=== PATIENT | female | born 1965 | race American Indian/Alaskan Native ===

== ENCOUNTER 2018-02-05 15:24 | Outpatient (CLI) | payer OTHER ==
--- NOTE | 2018-02-06 08:05 | XRay Report ---
FINAL REPORT EXAM: XR SPINE LUMBOSACRAL 2-3V HISTORY: LUMBAGO WITH SCIATICA RIGHT SIDE/DISABILITY EXAMINATION TECHNIQUE: Three views lumbar spine were obtained. FINDINGS: There is severe narrowing of the L5-S1 disc. There is very mild narrowing of the L3-4 disc with endplate spurring. The alignment appears normal. There is no evidence of fracture. The SI joints appear normal. The soft tissues are unremarkable. IMPRESSION: Disc degeneration at the L5-S1 and L3-4 levels.
== END 2018-02-05 15:25 | disposition home or self-care (01) ==
LOC: XRAY 15:24
PROVIDERS: ATTEND Internal Medicine
DX: Z02.71 Encounter for disability determination (principal); M51.37 Other intervertebral disc degeneration, lumbosacral region
CPT/HCPCS: 72100

== ENCOUNTER 2018-03-12 08:51 | Outpatient (CLI) | payer OTHER ==
--- NOTE | 2018-03-12 10:01 | XRay Report ---
Right 3 views: History: Shoulder pain. Findings: Mild arthritic changes a.c. joint. Glenohumeral joint appears normal. Normal acromiohumeral space. No soft tissue calcification. Impression: Mild arthritic changes a.c. joint.
--- NOTE | 2018-03-12 10:02 | XRay Report ---
Left ankle 2 views: History: Left leg injury. Findings: No bony or articular abnormality at the ankle joint. No fracture dislocation or soft tissue calcification. Spur Impression: No evidence of acute fracture. posterior inferior inferior calcaneum.
== END 2018-03-12 08:52 | disposition home or self-care (01) ==
LOC: XRAY 08:51
PROVIDERS: ATTEND Internal Medicine
DX: S89.92XA Unspecified injury of left lower leg, initial encounter (principal); M77.32 Calcaneal spur, left foot; M19.011 Primary osteoarthritis, right shoulder; I10 Essential (primary) hypertension; M54.5 Low back pain; X58.XXXA Exposure to other specified factors, initial encounter; Y93.89 Activity, other specified; Y92.89 Other specified places as the place of occurrence of the external cause; Y99.8 Other external cause status

== ENCOUNTER 2019-02-04 05:48 | Day surgery (SDC) | payer OTHER ==
[2019-02-04] MEDS ORDERED: ECOTRIN PO ONE (06:23)
[2019-02-04 07:07] LABS: Basophils % (Auto) 0.2 % (0.0-1.8); Eosinophils # (Auto) 0.1 K/mm3 (0.0-0.4); Hematocrit 41.3 % (30.3-42.9); Hemoglobin 13.8 gm/dl (10.1-14.3); Lymphocytes # (Auto) 1.7 K/mm3 (1.2-5.4); Lymphocytes % (Auto) 36.8 % (13.4-35.0); Mean Corpuscular HGB Conc 34 % (30-34); Mean Corpuscular Volume 87 fl (79-97); Monocytes # (Auto) 0.4 K/mm3 (0.0-0.8); Monocytes % (Auto) 7.4 % (0.0-7.3); Platelet Count 216 K/mm3 (140-440); Red Blood Count 4.75 M/mm3 (3.65-5.03); Red Cell Distribution Width 14.5 % (13.2-15.2)
[2019-02-04 07:18] LABS: INR 1.72 (0.87-1.13)
[2019-02-04 07:27] LABS: BUN/Creatinine Ratio 17; Blood Urea Nitrogen 15 mg/dL (7-17); Calcium 8.8 mg/dL (8.4-10.2); Hemolysis Index 1
[2019-02-04] MEDS: NACL 0.9% 500 ML 500 ML IV SCH ×2 (07:34→08:35)
[2019-02-04] MEDS ORDERED: VERSED ONE (08:16)
[2019-02-04] MEDS ORDERED: HEPARIN 10,000 UNITS/10 ML ONE (08:16)
[2019-02-04] MEDS ORDERED: HEPARIN/NS 5000 UNIT/500ML(CATH LAB) 1,000 ML IR ONE (08:16)
[2019-02-04] MEDS ORDERED: SUBLIMAZE ONE (08:17)
[2019-02-04] MEDS ORDERED: CALAN ONE (08:17)
[2019-02-04] MEDS ORDERED: XYLOCAINE 2% INFILTRATI ONE (08:17)
[2019-02-04] MEDS ORDERED: NITROGLYCERIN SYRINGE 0 ML ONE (08:17)
--- NOTE | 2019-02-04 09:22 | Short Stay Summary ---
Short Stay Documentation Date of service: 02/04/19 - History H&P: obtained from office - Allergies and Medications Current Medications: Allergies No Known Allergies Allergy (Unverified 02/05/18 15:25) Home Medications Medication Instructions Recorded Confirmed Last Taken Type Atenolol/Chlorthalidone [Tenoretic 1 tab PO QDAY 02/04/19 02/04/19 02/04/19 04:45 History 50-25] Cholecalciferol (Vitamin D3) 5,000 unit PO DAILY 02/04/19 02/04/19 02/04/19 04:45 History [Vitamin D3] Losartan Potassium [Cozaar] 100 mg PO DAILY 02/04/19 02/04/19 02/04/19 04:45 History Active Medications Sodium Chloride (Nacl 0.9% 500 Ml) 500 mls @ 50 mls/hr IV DIRECT JUSTINE Stop: 02/04/19 16:59 Last Admin: 02/04/19 08:35 Dose: 50 mls/hr Documented by: - Physical exam General appearance: no acute distress Integumentary: no rash HEENT: Atraumatic Lungs: Clear to auscultation Breasts: deferred Heart: Regular rate Gastrointestinal: normal Female Genitourinary: deferred Rectal Exam: deferred Extremities: no ischemia Neurological: Normal gait - Brief post op/procedure progress note Date of procedure: 02/04/19 Pre-op diagnosis: Pulmonary stenosis Post-op diagnosis: same Procedure: RHC Anesthesia: MAC Findings: See report Surgeon: HARLAN CARO Estimated blood loss: none Pathology: none Condition: stable - Hospital course Hospital course: Uneventful - Disposition Condition at discharge: Good Disposition: DC-01 TO HOME OR SELFCARE Short Stay Discharge Plan Activity: advance as tolerated Weight Bearing Status: Weight Bear as Tolerated Diet: low salt Follow up with: Cecilia HOBSON MD [Other] - 7 Days
--- NOTE | 2019-02-04 10:21 | Cardiac Catherization Report ---
RIGHT HEART CATHETERIZATION ORDERING PHYSICIAN: Vernon Bryan MD INDICATION: Pulmonary stenosis. DESCRIPTION OF PROCEDURE: After obtaining written consent, the patient was draped using sterile technique. A 2% lidocaine was injected into the right antecubital fossa. A 6-Irish vascular sheath was inserted over a previously inserted intravenous catheter line. A 6-Irish [place]-Phong catheter was then used to measure right-sided hemodynamics and perform oxygen saturation run. No complications occurred during the procedure. Hemostasis was achieved at the end of the procedure using manual pressure. SPECIMEN REMOVED: None. ESTIMATED BLOOD LOSS: Minimal. The sedation start time is 8:34 a.m., sedation stop time is 8:50 a.m. Total sedation time is 16 minutes. HEMODYNAMIC FINDINGS: 1. The mean right arterial pressure was 12 mmHg, the right ventricular systolic pressure 87 mmHg, right ventricular end-diastolic pressure 17 mmHg. The pulmonary artery systolic pressure 27 mmHg and the pulmonary artery diastolic pressure 14 mmHg, the mean pulmonary artery pressure was 19 mmHg. 2. The mean pulmonary capillary wedge pressure is 11 mmHg. 3. The cardiac output was measured at 4.98 L per minute with a cardiac index of 2.28 L per minute per meter square. The pulmonary artery saturation was 69%, RV saturation 69%, RA saturation 68%, SVC saturation 71%, and aortic saturation 99%. The [id number] pressure gradient across the right ventricular outflow tract was measured at 60 mmHg. IMPRESSION: 1. Moderate to severely elevated RVOT gradient measured at 60 mmHg upon pullback from the main pulmonary artery into the right ventricle. 2. Mildly elevated right-sided filling pressures. 3. No evidence of an intracardiac shunt. 4. Preserved cardiac output. RECOMMENDATIONS: 1. Followup with referring healthcare manager. 2. Decision to proceed with intervention to the pulmonary valve will depend on the patient's symptoms as well as echocardiographic findings. JOB# [id number] CRISSY/VI
[2019-02-04 10:44] VITALS: BP 127/79
== END 2019-02-04 10:44 | disposition home or self-care (01) ==
LOC: CATHLABREC 05:48
PROVIDERS: ATTEND Internal Medicine
DX: I51.89 Other ill-defined heart diseases (principal); I37.0 Nonrheumatic pulmonary valve stenosis; I10 Essential (primary) hypertension; F41.9 Anxiety disorder, unspecified; Z80.41 Family history of malignant neoplasm of ovary; Z79.899 Other long term (current) drug therapy; Z79.01 Long term (current) use of anticoagulants
CPT/HCPCS: 36415; 80048; 85025; 85610; 85730; 93005; 93010; 93451; 99156; C1894; J1644; J2250; J3010; J7040

== ENCOUNTER 2021-02-21 08:20 | Day surgery (SDC) | payer OTHER ==
[2021-02-21] MEDS ORDERED: ASPIRIN EC 325 MG TAB PO ONE (08:25)
[2021-02-21] MEDS ORDERED: CLOPIDOGREL 300 MG TAB PO ONE (08:25)
[2021-02-21] MEDS ORDERED: SODIUM CHLORIDE 0.9% 500 ML 500 ML IV SCH (09:00)
[2021-02-21 09:07] LABS: Basophils % (Auto) 0.6 % (0.0-1.8); Eosinophils # (Auto) 0.1 K/mm3 (0.0-0.4); Eosinophils % (Auto) 1.9 % (0.0-4.3); Hematocrit 41.8 % (30.3-42.9); Hemoglobin 14.1 gm/dl (10.1-14.3); Lymphocytes # (Auto) 1.4 K/mm3 (1.2-5.4); Lymphocytes % (Auto) 31.8 % (13.4-35.0); Mean Corpuscular HGB Conc 34 % (30-34); Mean Corpuscular Volume 89 fl (79-97); Monocytes # (Auto) 0.3 K/mm3 (0.0-0.8); Monocytes % (Auto) 6.5 % (0.0-7.3); Platelet Count 214 K/mm3 (140-440); Red Blood Count 4.69 M/mm3 (3.65-5.03); Red Cell Distribution Width 13.2 % (13.2-15.2)
[2021-02-21 09:26] LABS: BUN/Creatinine Ratio 15; Blood Urea Nitrogen 12 mg/dL (7-17); Hemolysis Index 0
[2021-02-21] MEDS ORDERED: HEPARIN 10,000 UNITS/10 ML VIAL ONE (09:32)
[2021-02-21] MEDS ORDERED: HEPARIN/NS 5000 UNIT/500ML 1,000 ML IR ONE (09:32)
[2021-02-21 09:33] LABS: INR 1.08 (0.87-1.13)
[2021-02-21] MEDS ORDERED: LIDOCAINE (2%) 20 MG/1 ML VIAL 20 ML MDV INFILTRATI ONE (09:33)
[2021-02-21 09:34] LABS: Partial Thromboplastin Time 25.2 Sec. (24.2-36.6)
[2021-02-21] MEDS: fentaNYL 100 MCG/2 ML INJ ONE ×2 (10:36→10:40)
[2021-02-21] MEDS: MIDAZOLAM 2 MG/2 ML INJ ONE ×2 (10:36→10:40)
[2021-02-21] MEDS ORDERED: SODIUM CHLORIDE 0.9% 1000 ML 1,000 ML IV SCH (11:00)
--- NOTE | 2021-02-21 11:03 | Discharge Summary ---
Short Stay Discharge Plan Activity: advance as tolerated Weight Bearing Status: Partial Weight Bearing Diet: low fat, low cholesterol, low salt Wound: keep clean and dry Special Instructions: smoking cessation, no heavy lifting (3 days) Follow up with: MARIANNA MINAYA MD [Primary Care Provider] - 7 Days ANTONELLA WINTERS MD [Staff Physician] - 7 Days
[2021-02-21] MEDS ORDERED: traMADol 50 MG TAB PO PRN (11:30)
[2021-02-21] MEDS ORDERED: ACETAMINOPHEN 500 MG TAB PO NR (13:30)
[2021-02-21 15:38] VITALS: BP 137/71
--- NOTE | 2021-02-22 21:19 | Cardiac Catherization Report ---
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 Due to the finding of an abnormal stress test, she was referred for an outpatient cardiac catheterization. Risks and benefits were discussed with the patient and procedure performed via the right femoral approach. Procedure: Left heart catheterization Selective left and right groin geography Angiography of the left internal mammary artery graft Angiography of the saphenous vein graft Left ventricular angiography Sedation time start 10:37, end 10:51. I was present for the entire procedure and supervised the moderate sedation protocol. Patient was prepped and draped in a sterile fashion after informed consent, the right femoral artery was entered using surgical technique followed by placement of a six Lao sheath. Selective left and right groin geography was performed using #4 left and right Geno catheters. The right Geno catheter was used for left ventricle angiography. Angiography of the saphenous vein graft to the circumflex system was also performed using the right Geno catheter. We then exchanged for a left internal mammary artery catheter for the angiography of the left internal mammary artery graft. The catheters were then removed, sheath removed and hemostasis achieved using manual compression. The patient was returned to the postprocedure unit in stable condition. There were no complications. Findings: Hemodynamics: The left ventricular end-diastolic pressure was twenty, following her angiography. Ascending aortic pressure was 159/79. There was no significant pressure gradient on pull back across the aortic valve. Coronary angiography: The left main coronary artery was angiographically normal. The left anterior descending artery and its diagonal branches were also angiographically normal. The left internal mammary artery graft which was anastomosed to the LAD system was found to be atrophic and nonfunctioning, this was likely the result of wide patency of the target vessels. The AV groove circumflex flex was also widely patent. The mid obtuse marginal branch was a relatively small caliber vessel that contained a long segment of moderate atherosclerosis in its mid portion. The saphenous vein graft to the mid obtuse marginal was patent with anastomosis to the distal segment of the mid obtuse marginal and good distal runoff. The right coronary artery was dominant, angiographically normal, and was not previously bypassed. Left ventricular angiography: There was normal left ventricular systolic function, ejection fraction 55 to 60%. Conclusion: 1. Moderate atherosclerosis of the mid obtuse marginal branch, otherwise angiographically normal coronary arteries. 2. Atrophic left internal mammary artery graft to the LAD, but target vessel is widely patent. 3. Patent saphenous vein graft to the mid obtuse marginal branch of the circumflex. 4. Normal left ventricular systolic function, ejection fraction 55 to 60%. Recommendations: Risk factor modification and medical therapy, no significant atherosclerotic disease on coronary angiography. TID: [id number] RECEIPT: [id number] JENIFER AWAD
--- NOTE | 2021-02-23 10:41 | Electrocardiograph Report ---
[facility] Test Date: 2021-02-21 Test Time: 08:29:59 Pat Name: DAVID ROD Department: Room: Gender: F Examination Supervisor: NEHEMIAS : [id number] Requested By: ZOILA ROJAS Order Number: [id number] Reading MD: Zoila Rojas Measurements Intervals [place] Rate: 70 P: 55 NV: 152 QRS: 60 QRSD: 106 T: 34 QT: 454 QTc: 488 Interpretive Statements Sinus rhythm No previous ECG available for comparison Electronically Signed On 02-23-2021 10:40:50 EDT by Zoila Rojas
== END 2021-02-21 16:05 | disposition home or self-care (01) ==
LOC: CATHLABREC 08:20
PROVIDERS: ATTEND Internal Medicine Cardiovascular Disease
DX: R94.39 Abnormal result of other cardiovascular function study (principal); I25.10 Atherosclerotic heart disease of native coronary artery without angina pectoris; E78.00 Pure hypercholesterolemia, unspecified; I10 Essential (primary) hypertension; K21.9 Gastro-esophageal reflux disease without esophagitis; Z79.899 Other long term (current) drug therapy; Z79.82 Long term (current) use of aspirin; Z95.1 Presence of aortocoronary bypass graft; Z95.2 Presence of prosthetic heart valve; Z80.8 Family history of malignant neoplasm of other organs or systems; Z80.41 Family history of malignant neoplasm of ovary
CPT/HCPCS: 36415; 80048; 85025; 85610; 85730; 93005; 93459; 99156; C1894; J1644; J2250; J3010; J7040; Q9967

== ENCOUNTER 2021-02-28 21:57 | Observation (INO) | payer OTHER ==
[2021-03-01 00:44] LABS: Basophils % (Auto) 0.6 % (0.0-1.8); Eosinophils # (Auto) 0.2 K/mm3 (0.0-0.4); Hematocrit 43.7 % (30.3-42.9); Hemoglobin 14.5 gm/dl (10.1-14.3); Lymphocytes # (Auto) 2.1 K/mm3 (1.2-5.4); Lymphocytes % (Auto) 43.1 % (13.4-35.0); Mean Corpuscular HGB Conc 33 % (30-34); Mean Corpuscular Volume 90 fl (79-97); Monocytes # (Auto) 0.4 K/mm3 (0.0-0.8); Monocytes % (Auto) 7.6 % (0.0-7.3); Platelet Count 238 K/mm3 (140-440); Red Blood Count 4.87 M/mm3 (3.65-5.03)
--- NOTE | 2021-03-01 01:01 | XRay Report ---
CHEST 2 VIEWS INDICATION / CLINICAL INFORMATION: dizzines/cp. COMPARISON: Right shoulder radiograph 03/12/2018 FINDINGS: SUPPORT DEVICES: None. HEART / MEDIASTINUM: Nonenlarged. Prior median sternotomy. Surgical clips in the left hilum. LUNGS / PLEURA: There is suggestion of a cyst or bleb in the right hilar region, not significantly ch anged in appearance compared with prior right shoulder radiograph from 2018. There is no focal pulmon alia consolidation. No pleural effusion. No pneumothorax. ADDITIONAL FINDINGS: No significant additional findings. IMPRESSION: 1. No acute findings. Chronic incidental findings as above. Signer Name: Qi Renee MD Signed: 03/01/2021 12:56 AM Workstation Name: [id number]
[2021-03-01 01:04] LABS: Alanine Aminotransferase 16 units/L (7-56); Albumin 4.3 g/dL (3.9-5); BUN/Creatinine Ratio 20; Blood Urea Nitrogen 16 mg/dL (7-17); Calcium 9.6 mg/dL (8.4-10.2); Hemolysis Index 3
--- NOTE | 2021-03-01 07:40 | Cat Scan Report ---
CT head/brain wo con INDICATION: Pt complains of dizziness. TECHNIQUE: Routine CT head without contrast. All CT scans at this location are performed using CT dos e reduction for ALARA by means of automated exposure control. COMPARISON: None. FINDINGS: BRAIN / INTRACRANIAL CONTENTS: No acute hemorrhage, mass effect, midline shift, or hydrocephalus. No appreciable acute large territorial or lacunar infarct. No chronic infarct or focal atrophy. Normal b rain volume and ventricular/sulcal size for age. ORBITS: No significant abnormality of visualized orbits. SINUSES / MASTOIDS: No significant abnormality of visualized sinuses and mastoid air cells. ADDITIONAL FINDINGS: None. IMPRESSION: 1. No acute intracranial abnormality. Signer Name: Qi Renee MD Signed: 03/01/2021 7:35 AM Workstation Name: [id number]
[2021-03-01] MEDS ORDERED: ASPIRIN 325 MG TAB PO ONE (08:45)
--- NOTE | 2021-03-01 08:47 | Emergency Department Report ---
ED Neuro Deficit HPI - General Chief Complaint: Dizziness Stated Complaint: DIZZINESS Time Seen by Provider: 03/01/21 06:15 Source: patient Mode of arrival: Ambulatory Limitations: No Limitations - History of Present Illness Initial Comments: This is a 55-year-old female with episodes of recurrent vertigo since 4 AM on 02/28/2021. She states that she has not experienced this before. She describes the room spinning periodically at rest and somewhat worsening on position. She states that she is able to walk but does experience vertigo while walking. She also states she is "dizzy". However she seems to have symptoms limited to vertigo. She has had no difficulty with her vision, speech focal weakness or numbness. She does not have difficulty with her coordination or gait independently from the vertigo. She states that she has not had this problem before. She denies headache, nausea or vomiting fever or chills. Patient has a rather complex cardiac history. She had a diagnostic cath at the end of January. I do not see the report. However she reported to me that there was no intervention. Her past medical history is quite complex with history of CABG x2/RYAN to LAD. She has a history of pulmonary artery stenosis with pulmonary valve replacement (bioprosthesis). She is not on oral anticoagulation. 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 She has a history of hyperlipidemia as well as hypert ension. -: Gradual, days(s) (Greater than 24 hours) Location: other (Vertigo) Presenting Symptoms: Absent: Weak/Paralyzed One Side, Sudden, Severe Headache, Blurred/Loss of Vision, Facial Droop/Numbness, Unable to Speak Clearly, Altered Mental Status History of same: No Place: home Severity: moderate Improves With: none Worsens With: other (Somewhat worsening with walking or upright position) On Anticoagulants: No Context: gradual onset Associated Symptoms: denies other symptoms Treatments Prior to Arrival: other (Takes a baby aspirin) - Related Data Home Medications: Home Medications Medication Instructions Recorded Confirmed Last Taken Aspirin [Adult Aspirin] 81 mg PO DAILY 02/21/21 02/21/21 02/20/21 AtorvaSTATin [Lipitor] 40 mg PO QHS 02/21/21 02/21/21 02/20/21 Furosemide [Lasix TAB] 20 mg PO QDAY 02/21/21 02/21/21 02/20/21 Metoprolol [Lopressor TAB] 25 mg PO BID 02/21/21 02/21/21 02/20/21 Naproxen [Naprosyn TAB] 500 mg PO BID 02/21/21 02/21/21 02/20/21 Pantoprazole [Protonix TAB] 40 mg PO QDAY 02/21/21 02/21/21 02/20/21 amLODIPine 10 mg PO DAILY 02/21/21 02/21/21 02/20/21 cloNIDine [Catapres] 0.1 mg PO BID 02/21/21 02/21/21 02/20/21 hydroCHLOROthiazide [HCTZ] 25 mg PO QDAY 02/21/21 02/21/21 02/20/21 Allergies/Adverse Reactions: Allergies Allergy/AdvReac Type Severity Reaction Status Date / Time No Known Allergies Allergy Unverified 02/05/18 15:25 ED Review of Systems ROS: Stated complaint: DIZZINESS Other details as noted in HPI Constitutional: denies: chills, fever Eyes: denies: eye pain, eye discharge, vision change ENT: denies: ear pain, throat pain Respiratory: denies: cough, shortness of breath Cardiovascular: denies: chest pain, palpitations Endocrine: no symptoms reported Gastrointestinal: denies: abdominal pain, nausea, diarrhea Genitourinary: denies: urgency, dysuria Musculoskeletal: denies: back pain, joint swelling, arthralgia Skin: denies: rash, lesions Neurological: as per HPI, vertigo. denies: headache, weakness, numbness, p aresthesias, confusion Psychiatric: denies: anxiety, depression Hematological/Lymphatic: denies: easy bleeding, easy bruising ED Past Medical Hx - Past Medical History Previous Medical History?: Yes Hx Hypertension: Yes Hx Heart Attack/AMI: No Hx GERD: Yes Hx Liver Disease: No Hx HIV: No - Surgical History Past Surgical History?: Yes Additional Surgical History: CABG, cardiac cath - Social History Smoking Status: Never Smoker Substance Use Type: None - Medications Home Medications: Home Medications Medication Instructions Recorded Confirmed Last Taken Type Aspirin [Adult Aspirin] 81 mg PO DAILY 02/21/21 02/21/21 02/20/21 History AtorvaSTATin [Lipitor] 40 mg PO QHS 02/21/21 02/21/21 02/20/21 History Furosemide [Lasix TAB] 20 mg PO QDAY 02/21/21 02/21/21 02/20/21 History Metoprolol [Lopressor TAB] 25 mg PO BID 02/21/21 02/21/21 02/20/21 History Naproxen [Naprosyn TAB] 500 mg PO BID 02/21/21 02/21/21 02/20/21 History Pantoprazole [Protonix TAB] 40 mg PO QDAY 02/21/21 02/21/21 02/20/21 History amLODIPine 10 mg PO DAILY 02/21/21 02/21/21 02/20/21 History cloNIDine [Catapres] 0.1 mg PO BID 02/21/21 02/21/21 02/20/21 History hydroCHLOROthiazide [HCTZ] 25 mg PO QDAY 02/21/21 02/21/21 02/20/21 History ED Neuro Physical Exam - General Limitations: No Limitations General appearance: alert, in no apparent distress Suspected Stroke: No (Consider stroke) - Head Head exam: Present: atraumatic, normocephalic - Eye Eye exam: Present: normal appearance. Absent: scleral icterus - ENT ENT exam: Present: mucous membranes moist - Neck Neck exam: Present: normal inspection - Respiratory Respiratory exam: Present: normal lung sounds bilaterally. Absent: respiratory distress - Cardiovascular Cardiovascular Exam: Present: regular rate, normal rhythm. Absent: systolic murmur, diastolic murmur, rubs, gallop - GI/Abdominal GI/Abdominal exam: Present: soft, normal bowel sounds. Absent: distended, tenderness, guarding, rebound - Extremities Exam Extremities exam: Present: normal inspection - Back Exam Back exam: Present: normal inspection - Neurological Exam Neurological exam: Present: alert, oriented X3, CN II-XII intact. Absent: motor sensory deficit - NIHSS Assessment Interval: Baseline 1a. Level of Consciousness: alert/keenly responsive 1b. LOC Questions: answers both correctly 1c. LOC Commands: performs tasks correctly 2. Best Gaze: normal 3. Visual: no visual loss 4. Facial Palsy: normal symmetrical movement 5b. Motor Arm Right: no drift 5a. Motor Arm Left: no drift 6a. Motor Leg Left: no drift 6b. Motor Leg Right: no drift 7. Limb Ataxia: absent 8. Sensory: normal 9. Best Language: no aphasia 10. Dysarthria: normal 11. Extinction/Inattention: no abnormality Total Score: 0 Stroke Severity: No Stroke Symptoms - Psychiatric Psychiatric exam: Present: normal affect, normal mood - Skin Skin exam: Present: warm, dry, intact, normal color. Absent: rash ED Course Vital Signs 03/01/21 03/01/21 00:29 05:05 Temperature 98.5 F 98.2 F Pulse Rate 70 68 Respiratory 18 16 Rate Blood Pressure 155/96 Blood Pressure 165/98 [Left] O2 Sat by Pulse 100 100 Oximetry - Reevaluation(s) Reevaluation #1: Patient was able to ambulate normally. CT of her head was negative. She was gi colleen an aspirin. I spoke to the teleneurologist, Dr. Lissa Ramires. She stated she would do an evaluation. They recommended independent of that evaluation, the patient be admitted for a stroke work-up. She is clinically stable. They did not recommend emergency CTA. They recommended MRI. Their examination is yet pending. I spoke to the hospitalist regarding admission. 03/01/21 08:55 - Lab Data Result diagrams: 03/01/21 00:33 03/01/21 00:33 Lab Results 03/01/21 03/01/21 03/01/21 Range/Units 00:33 00:33 03:53 WBC 4.8 (4.5-11.0) K/mm3 RBC 4.87 (3.65-5.03) M/mm3 Hgb 14.5 H (10.1-14.3) gm/dl Hct 43.7 H (30.3-42.9) % MCV 90 (79-97) fl MCH 30 (28-32) pg MCHC 33 (30-34) % RDW 13.0 L (13.2-15.2) % Plt Count 238 (140-440) K/mm3 Lymph % (Auto) 43.1 H (13.4-35.0) % [place] % (Auto) 7.6 H (0.0-7.3) % Eos % (Auto) 4.0 (0.0-4.3) % Baso % (Auto) 0.6 (0.0-1.8) % Lymph # (Auto) 2.1 (1.2-5.4) K/mm3 [place] # (Auto) 0.4 (0.0-0.8) K/mm3 Eos # (Auto) 0.2 (0.0-0.4) K/mm3 Baso # (Auto) 0.0 (0.0-0.1) K/mm3 Seg Neutrophils % 44.7 (40.0-70.0) % Seg Neutrophils # 2.2 (1.8-7.7) K/mm3 Sodium 141 (137-145) mmol/L Potassium 4.3 (3.6-5.0) mmol/L Chloride 100.6 (98-107) mmol/L Carbon Dioxide 33 H (22-30) mmol/L Anion Gap 12 mmol/L BUN 16 (7-17) mg/dL Creatinine 0.8 (0.6-1.2) mg/dL Estimated GFR > 60 ml/min BUN/Creatinine Ratio 20 % Glucose 118 H (65-100) mg/dL Calcium 9.6 (8.4-10.2) mg/dL Total Bilirubin 0.50 (0.1-1.2) mg/dL AST 13 (5-40) units/L ALT 16 (7-56) units/L Alkaline Phosphatase 80 (35-129) units/L Troponin T < 0.010 < 0.010 (0.00-0.029) ng/mL Total Protein 7.6 (6.3-8.2) g/dL Albumin 4.3 (3.9-5) g/dL Albumin/Globulin Ratio 1.3 % - EKG Data -: EKG Interpreted by Me EKG shows normal: sinus rhythm, axis, intervals, QRS complexes, ST-T waves Rate: normal, tachycardia, bradycardia Interpretation: no acute changes, other (Biatrial abnormality/enlargement) - Radiology Data Radiology results: report reviewed CT the head and chest x-ray revealed no acute process - Thrombolytic Inclusion/Exclusion Thrombolytic Exclusion Criteria: Symptom Onset > 3 Hours Critical care attestation.: If time is entered above; I have spent that time in minutes in the direct care of this critically ill patient, excluding procedure time. ED Disposition Clinical Impression: Vertigo, Pulmonary valve replaced, Essential hypertension, Status post coronary artery bypass graft Hyperlipidemia Qualifiers: Hyperlipidemia type: unspecified Qualified Code(s): E78.5 - Hyperlipidemia, unspecified Disposition: OP ADMIT IP TO THIS HOSP Is pt being admited?: Yes Does the pt Need Aspirin: Yes Condition: Stable Instructions: Hypertension (ED) Referrals: PRIMARY CARE, [Primary Care Provider] - 3-5 Days Time of Disposition: 08:58
--- NOTE | 2021-03-01 09:13 | Emergency Department Report ---
Blank Doc - Documentation Documentation: [facility] Consult Note # Demographics Consult Type: General Neurology Patient Location: Emergency Room First Name: Glenys Last Name: Eliseo Age: 55 Gender: Female Time of Initial Page ( Time): 03/01/2021, 08:33 Time of Return Call ( Time): 03/01/2021, 08:34 # HPI History: 55yo F present with intermittent dizziness for the last 24+ hours. normal exam at this time # Scores Time of exam and NIHSS ( Time): 03/01/2021, 08:39 Level of Consciousness 1a: [0] = Alert; keenly responsive LOC Questions 1b: [0] = Answers both questions correctly LOC Commands 1c: [0] = Performs both tasks correctly Best Gaze 2: [0] = Normal Visual 3: [0] = No visual loss Facial Palsy 4: [0] = Normal symmetrical movements Motor Arm Left 5a: [0] = No drift Motor Arm Right 5b: [0] = No drift Motor Leg Left 6a: [0] = No drift Motor Leg Right 6b: [0] = No drift Limb Ataxia 7: [0] = Absent Sensory 8: [0] = Normal Best Language 9: [0] = No aphasia Dysarthria 10: [0] = Normal Extinction and Inattention 11: [0] = No abnormality NIHSS Total: 0 # PMH-FH-SH Past Medical History: coronary artery disease # Assessment Impression: Vertigo # Plan Thrombolytic/Intervention: NOT IV Thrombolytic or IA Intervention Thrombolytic Exclusion: > 4.5 hours Intraarterial Exclusion: clinically consistent with small vessel disease Imaging: (urgency: routine admission): MRI Brain with AND without contrast Other: would not pursue stroke work-up if MRI is negative, I have discussed my recommendations with the referring provider Additional Recommendations: Further work-up based on MRI results # Logistics Telemedicine: Interactive 2 way audio and visual telecommunication technology was utilized during this visit
--- NOTE | 2021-03-01 11:10 | History and Physical Report ---
History of Present Illness Date of examination: 03/01/21 Date of admission: 03/01/21 08:58 Chief complaint: Vertigo History of present illness: This is a 55-year-old female with h/o CABG x2/RYAN to LAD, pulmonary artery stenosis with pulmonary valve replacement (bioprosthesis), HTN, HLD presented tp ER with episodes of recurrent vertigo since 4 AM on 02/28/2021. She describes her dizziness with room spinning periodically at rest and somewhat worsening on position. She also experience vertigo while walking. She has had no difficulty with her vision, speech focal weakness or numbness or ant earche. She states that she has not had this problem before. She denies headache, nausea or vomiting fever or chills.CT head in the ER is unremarkable, she was evaluated by teleneurology and recommended to admit the patient and get a MRI brain. She had a recent Cardiac catheterization showed the [place] vessels including the left main, LAD, circumflex and right coronary arteries were without significant disease. Left ventricular ejection fraction was normal at 55 to 60%. Past medical History: h/o HTN, CAD, HLD Past surgical History: s/p CABG, angiogram Social History: Lives with family, denies any smoking, drinking and elicit drug abuse. Family History: Significant for HD Review of System: Constitutional: no fever, no chills, no weight loss, +vertigo Ears, eyes, nose, mouth and throat: no nasal congestion, no nasal discharge, no sinus pressure, no vision change, no red eye. Neck: No neck pain or rigidity. Cardiovascular: No chest pain, no orthopnea, no palpitations, no leg swelling Respiratory: No shortness of breath, no cough, no congestion, no wheezing Gastrointestinal: no abdominal pain, no nausea, no vomiting Genitourinary : no dysuria, no hematuria Musculoskeletal: no joint swelling or muscle ache Integumentary: no rash, no pruritis Neurological: no parathesias, no numbness, no tingling Endocrine: no cold or heat intolerance, no polyuria or polydipsia Hematologic/Lymphatic: no easy bruising, no easy bleeding, no gland swelling Allergic/Immunologic: no urticaria, no angioedema. Medications and Allergies Allergies Allergy/AdvReac Type Severity Reaction Status Date / Time No Known Allergies Allergy Unverified 04/11/18 15:25 Home Medications Medication Instructions Recorded Confirmed Last Taken Type Aspirin [Adult Aspirin] 81 mg PO DAILY 02/21/21 03/01/21 02/20/21 History AtorvaSTATin [Lipitor] 40 mg PO QHS 02/21/21 03/01/21 02/20/21 History Metoprolol [Lopressor TAB] 25 mg PO BID 02/21/21 03/01/21 02/20/21 History Pantoprazole [Protonix TAB] 40 mg PO QDAY 02/21/21 03/01/21 02/20/21 History amLODIPine 10 mg PO DAILY 02/21/21 03/01/21 02/20/21 History Meclizine [Antivert] 25 mg PO Q8H PRN #20 tablet 03/02/21 Unknown Rx Exam - Physical Exam Narrative exam: GENERAL: well-developed and well-nourished lying on bed appeared to be in no discomfort. HEENT: Normocephalic. Atraumatic. No conjunctival congestion or icterus. P atient has moist mucous membranes. NECK: Supple. Trachea midline. CHEST/LUNGS: Clear to auscultated bilaterally, breathing nonlabored. No wheezes crackles or rhonchi. HEART/CARDIOVASCULAR: Regular in rate and rhythm. S1 and S2 positive. ABDOMEN: Abdomen is soft, nontender. Patient has normal bowel sounds. SKIN: There is no rash. Warm and dry. NEURO: No focal motor deficit. Follows command. MUSCULOSKELETAL: No joint effusion or tenderness. EXTRIMITY: No edema, no cyanosis or clubbing. PSYCH: Cooperative. - Constitutional Vitals: Temp Pulse Resp BP Pulse Ox 98.2 F 68 16 158/86 100 03/01/21 05:05 03/01/21 05:05 03/01/21 05:05 03/01/21 10:16 03/01/21 10:16 HEART Score - HEART Score Troponin: Troponin T < 0.010 ng/mL (0.00-0.029) 03/01/21 03:53 Results - Labs CBC & Chem 7: 03/01/21 00:33 03/01/21 00:33 Labs: Abnormal lab results 03/01/21 03/01/21 Range/Units 00:33 00:33 Hgb 14.5 H (10.1-14.3) gm/dl Hct 43.7 H (30.3-42.9) % RDW 13.0 L (13.2-15.2) % Lymph % (Auto) 43.1 H (13.4-35.0) % [place] % (Auto) 7.6 H (0.0-7.3) % Carbon Dioxide 33 H (22-30) mmol/L Glucose 118 H (65-100) mg/dL - Imaging and Cardiology CT Scan - head: report reviewed Assessment and Plan Vertigo/dizziness -CT head without any acute finding -Consult neurology/cardiology, PT eval, MRI brain CAD s/p two-vessel CABG -Recent history of cardiac catheterization which showed EF 55% -Continue routine cardiac medications Hypertension -Continue to monitor BP, continue home meds HLD, continue statin Obesity, low-fat and low-salt diet recommended DVT prophylaxis, Lovenox
[2021-03-01] MEDS ORDERED: ACETAMINOPHEN 325 MG TAB PO PRN (14:18)
[2021-03-01] MEDS: amLODIPine 10 MG TAB PO SCH (14:33)
[2021-03-01] MEDS: METOPROLOL TARTRATE 25 MG TAB PO SCH ×2 (14:34→21:49)
[2021-03-01] MEDS ORDERED: ASPIRIN EC 325 MG TAB PO ONE (15:00)
[2021-03-01] MEDS ORDERED: ENOXAPARIN 40 MG/0.4 ML INJ SUB-Q SCH (22:00)
[2021-03-01] MEDS ORDERED: NAPROXEN 500 MG TAB PO SCH (22:00)
[2021-03-02] MEDS: amLODIPine 10 MG TAB PO SCH (09:24)
[2021-03-02] MEDS: METOPROLOL TARTRATE 25 MG TAB PO SCH (09:24)
[2021-03-02] MEDS ORDERED: POTASSIUM CHLORIDE ER 20 MEQ TAB PO SCH (10:00)
[2021-03-02] MEDS ORDERED: ASPIRIN EC 325 MG TAB PO SCH (10:00)
[2021-03-02] MEDS ORDERED: PANTOPRAZOLE 40 MG TAB PO SCH (10:00)
[2021-03-02] MEDS ORDERED: FUROSEMIDE 20 MG TAB PO SCH (10:00)
[2021-03-02] MEDS ORDERED: MECLIZINE 25 MG TAB PO PRN (10:10)
--- NOTE | 2021-03-02 12:33 | Consultation ---
History of Present Illness Consult date: 03/02/21 Consult reason: other (Dizziness) History of present illness: The patient is a 55-year-old woman with a history of pulmonic stenosis, who underwent bioprosthetic pulmonary valve replacement 3 years ago. At that time, she also underwent concomitant two-vessel coronary artery bypass. She was evaluated in this hospital just last month for atypical chest pain. Work-up eventually culminated in a diagnostic cardiac catheterization. Cardiac cat heterization showed an atrophic RYAN graft to the LAD, and a patent saphenous vein graft to the obtuse marginal. But most remarkably, the [place] vessels including the left main, LAD, circumflex and right coronary arteries were without significant disease. Left ventricular ejection fraction was normal at 55 to 60%. The patient is admitted to the hospital at this time with complaints of dizziness. A head CT in the emergency room was negative. It is also reported that the patient was ordered for and completed a brain MRI. Past History Past Medical History: CAD, other (Pulmonic valve stenosis) Past Surgical History: valve replacement, CABG Medications and Allergies Allergies Allergy/AdvReac Type Severity Reaction Status Date / Time No Known Allergies Allergy Unverified 02/05/18 15:25 Home Medications Medication Instructions Recorded Confirmed Last Taken Type Aspirin [Adult Aspirin] 81 mg PO DAILY 02/21/21 03/01/21 02/20/21 History AtorvaSTATin [Lipitor] 40 mg PO QHS 02/21/21 03/01/21 02/20/21 History Metoprolol [Lopressor TAB] 25 mg PO BID 02/21/21 03/01/21 02/20/21 History Pantoprazole [Protonix TAB] 40 mg PO QDAY 02/21/21 03/01/21 02/20/21 History amLODIPine 10 mg PO DAILY 02/21/21 03/01/21 02/20/21 History Meclizine [Antivert] 25 mg PO Q8H PRN #20 tablet 03/02/21 Unknown Rx Active Meds: Active Medications Acetaminophen (Acetaminophen 325 Mg Tab) 650 mg PO Q4H PRN PRN Reason: Pain, Mild (1-3) Last Admin: 03/01/21 14:33 Dose: 650 mg Documented by: Amlodipine Besylate (Amlodipine 10 Mg Tab) 10 mg PO DAILY [facility] Last Admin: 03/02/21 09:24 Dose: 10 mg Documented by: Aspirin (Aspirin Ec 325 Mg Tab) 325 mg PO QDAY [facility] Last Admin: 03/02/21 09:24 Dose: 325 mg Documented by: Atorvastatin Calcium (Atorvastatin 40 Mg Tab) 40 mg PO QHS [facility] Last Admin: 03/01/21 21:49 Dose: 40 mg Documented by: Enoxaparin Sodium (Enoxaparin 40 Mg/0.4 Ml Inj) 40 mg SUB-Q QDAY@2200 [facility]; Protocol Last Admin: 03/01/21 21:49 Dose: 40 mg Documented by: Meclizine HCl (Meclizine 25 Mg Tab) 25 mg PO Q8H PRN PRN Reason: Vertigo Metoprolol Tartrate (Metoprolol Tartrate 25 Mg Tab) 25 mg PO BID [facility] Last Admin: 03/02/21 09:24 Dose: Not Given Documented by: Pantoprazole Sodium (Pantoprazole 40 Mg Tab) 40 mg PO QDAY [facility] Last Admin: 03/02/21 09:24 Dose: 40 mg Documented by: Potassium Chloride (Potassium Chloride Er 20 Meq Tab) 20 meq PO QDAY [facility] Last Admin: 03/02/21 09:24 Dose: 20 meq Documented by: Review of Systems Cardiovascular: lightheadedness, no chest pain, no orthopnea, no palpitations, no rapid/irregular heart beat, no edema, no syncope, no shortness of breath Physical Examination Vital Signs Temp Pulse Resp BP Pulse Ox 98.5 F 70 18 155/96 100 03/01/21 00:29 03/01/21 00:29 03/01/21 00:29 03/01/21 00:29 03/01/21 00:29 General appearance: no acute distress HEENT: Positive: PERRL Neck: Positive: neck supple Cardiac: Positive: Reg Rate and Rhythm Lungs: Positive: Decreased Breath Sounds Neuro: Positive: Grossly Intact Abdomen: Positive: Soft Female genitourinary: deferred Skin: Positive: Clear Extremities: Absent: edema Results 03/01/21 00:33 03/01/21 00:33 EKG interpretations - Telemetry EKG Rhythm: Sinus Rhythm Assessment and Plan - Patient Problems (1) Dizziness Status: Acute Plan to address problem: Patient has no cardiac complaints, will defer to neurology and internal medicine for further management of patient's dizziness and vertigo.
--- NOTE | 2021-03-02 14:21 | Discharge Summary ---
Providers - Providers Date of Admission: 03/01/21 08:58 Date of discharge: 03/02/21 Attending physician: OUMOU DANIELS 03/01/21 12:49 Consult to Physician [CONS] Routine Comment: Consulting Provider: YUDI ROJAS Physician Instructions: Reason For Exam: dizziness 03/01/21 12:50 Consult to Physician [CONS] Routine Comment: Consulting Provider: TEGAN MILIAN Physician Instructions: Reason For Exam: dizziness 03/01/21 13:34 Physical Therapy Evaluation and Treat [CONS] Routine Comment: Reason For Exam: Debility Primary care physician: BERRY PICKER MACHINE OPERATOR Hospitalization Condition: Stable Pertinent studies: CT head/MRI brain Hospital course: This is a 55-year-old female with h/o CABG x2/RYAN to LAD, pulmonary artery stenosis with pulmonary valve replacement (bioprosthesis), HTN, HLD presented tp ER with episodes of recurrent vertigo since 4 AM on 02/28/2021. CT head in the ER is unremarkable, she was evaluated by teleneurology and recommended to admit the patient and get a MRI brain. She had a recent Cardiac catheterization showed the [place] vessels including the left main, LAD, circumflex and right coronary arteries were without significant disease. Left ventricular ejection fraction was normal at 55 to 60%. Her MRI brain was unremarkable. Cardiology was consulted and they recommended medical Mx. Patient was started on meclizine as needed. PT evaluated and recommended no additional need. Patient was suggested vestibular rehab if symptom persists as outpt. She was then discharged home in stable condition. Disposition: DC- TO HOME OR SELFCARE Final Discharge Diagnosis (Prints w/discharge instructions): Benign positional vertigo. Coronary artery disease. Hypertension. Obesity Time spent for discharge: 34 minutes Core Measure Documentation - Palliative Care Palliative Care/ Comfort Measures: Not Applicable - Core Measures Any of the following diagnoses?: none Exam - Physical Exam Narrative exam: GENERAL: well-developed and well-nourished AAF lying on bed appeared to be in no discomfort. HEENT: Normocephalic. Atraumatic. No conjunctival congestion or icterus. Patient has moist mucous membranes. NECK: Supple. Trachea midline. CHEST/LUNGS: Clear to auscultated bilaterally, breathing nonlabored. No wheezes crackles or rhonchi. HEART/CARDIOVASCULAR: Regular in rate and rhythm. S1 and S2 positive. ABDOMEN: Abdomen is soft, nontender. Patient has normal bowel sounds. SKIN: There is no rash. Warm and dry. NEURO: No focal motor deficit. Follows command. MUSCULOSKELETAL: No joint effusion or tenderness. EXTRIMITY: No edema, no cyanosis or clubbing. PSYCH: Cooperative. - Constitutional Vitals: Temp Pulse Resp BP Pulse Ox 98.4 F 62 22 125/88 99 03/02/21 11:14 03/02/21 12:00 03/02/21 11:14 03/02/21 12:42 03/02/21 11:14 Plan Activity: advance as tolerated Weight Bearing Status: Weight Bear as Tolerated Diet: low fat, low cholesterol Additional Instructions: Recommend vestibular rehab as outpt if symptoms reoccur and persists. Continue meclizine as needed for vertigo. Follow-up with olap developer in 1 week Follow up with: PRIMARY CAREMD [Primary Care Provider] - 3-5 Days YUDI ROJAS MD [Staff Physician] - 7 Days Forms: Work/School Release Form(ED), Work/School Excuse Out Patient, Work/School Release Form Prescriptions: Meclizine [Antivert] 25 mg PO Q8H PRN #20 tablet PRN Reason: Vertigo
--- NOTE | 2021-03-02 15:57 | Magnetic Resonance Report ---
. MR brain wo/w con INDICATION / CLINICAL INFORMATION: dizziness. TECHNIQUE: Multiplanar, multisequence MR images of the brain were obtained. COMPARISON: CT head 03/01/2021 FINDINGS: INTRACRANIAL: No restricted diffusion. No hemorrhage. Ventricular caliber is normal. No extra-axial c ollection. No mass. No herniation. Major intracranial vascular flow voids are preserved. Punctate no nspecific focus of hemosiderin seen in the left cerebellum. No abnormal enhancement. ORBITS: No significant abnormality of visualized orbits. SINUSES / MASTOIDS: No significant abnormality of visualized sinuses and mastoid air cells. ADDITIONAL FINDINGS: None. IMPRESSION: 1. No significant intracranial abnormality. Signer Name: Johnny Mehta MD Signed: 03/02/2021 3:52 PM Workstation Name: [id number]
[2021-03-02 16:52] VITALS: BP 134/85
--- NOTE | 2021-03-02 17:39 | Electrocardiograph Report ---
[facility] Test Date: 2021-03-01 Test Time: 06:29:39 Pat Name: DAVID ROD Department: Room: A373 1 Gender: F Fieldwork Coordinator: MOSHE : 1965 Requested By: VIDAL OROZCO Order Number: [id number] Reading MD: Watson Orourke Measurements Intervals [place] Rate: 62 P: 73 HI: 155 QRS: 75 QRSD: 102 T: 67 QT: 456 QTc: 464 Interpretive Statements Sinus rhythm Probable left atrial enlargement Compared to ECG 02/21/2021 08:29:59 No significant changes Electronically Signed On 03-02-2021 17:38:41 EDT by Watson Orourke
--- NOTE | 2021-03-02 17:57 | Electrocardiograph Report ---
[facility] Test Date: 2021-03-02 Test Time: 07:10:19 Pat Name: DAVID ROD Department: Room: A373 1 Gender: F Strip Cutter: RYAN : 1965 Requested By: VIDAL OROZCO Order Number: [id number] Reading MD: Watson Orourke Measurements Intervals [place] Rate: 57 P: 65 RI: 175 QRS: 78 QRSD: 106 T: 74 QT: 463 QTc: 452 Interpretive Statements Sinus rhythm Compared to ECG 03/01/2021 06:29:39 No significant changes Electronically Signed On 03-02-2021 17:56:57 EDT by Watson Orourke
== END 2021-03-02 17:12 | disposition home or self-care (01) ==
LOC: ED 21:57 → 3A 03-01 08:58
PROVIDERS: ADMIT Internal Medicine; ATTEND Internal Medicine
DX: I10 Essential (primary) hypertension (principal); R42 Dizziness and giddiness; I25.10 Atherosclerotic heart disease of native coronary artery without angina pectoris; E66.9 Obesity, unspecified; E78.5 Hyperlipidemia, unspecified; K21.9 Gastro-esophageal reflux disease without esophagitis; R29.700 NIHSS score 0; Z98.61 Coronary angioplasty status; Z79.82 Long term (current) use of aspirin; Z95.1 Presence of aortocoronary bypass graft; Z95.2 Presence of prosthetic heart valve
CPT/HCPCS: 36415; 70450; 70553; 71046; 80053; 84484; 85025; 93005; 96372; 97161; 99285; A9270; A9575; G0378; J1650